=== PATIENT | female | born 1975 | race Caucasian/White ===

== ENCOUNTER 2017-07-19 13:23 | Outpatient (CLI) | payer BC | END 2017-07-19 13:24 | disposition home or self-care (01) | LOC: BICMRI 13:23 | PROVIDERS: ATTEND Family Medicine | DX: S83.242A Other tear of medial meniscus, current injury, left knee, initial encounter (principal); S83.412A Sprain of medial collateral ligament of left knee, initial encounter ==

== ENCOUNTER 2017-07-27 09:58 | Outpatient (CLI) | payer BC ==
[2017-07-27 11:07] LABS: #Eosinphils 0.2 thou/uL (0.0-0.7); #Lymphocytes 1.3 thou/uL (1.20-3.40); #Monocytes 0.6 thou/uL (0.11-0.59); #Neutrophils 5.6 thou/uL (1.40-6.50); %Basophils 0.6 % (0.0-1.0); %Eosinophils 2.8 % (0.0-10.0); %Lymphocytes 16.8 % (21.0-51.0); %Monocytes 7.6 % (0.0-10.0); %Neutrophils 72.2 % (42.0-75.0); Hemoglobin 14.4 g/dL (12.0-16.0); Mean Corpuscular HGB CONC 34.3 g/dL (32.0-36.0); Mean Corpuscular Hemoglobin 30.1 pg (27.0-31.0); Mean Corpuscular Volume 87.8 fl (81.0-99.0); Mean Platelet Volume 5.4 fL (7.4-10.4); Platelet Count 352 thou/uL (130-400); RBC Distribution Width 11.8 % (11.5-14.5); Red Blood Cell (RBC) Count 4.78 mill/uL (4.20-5.40); White Blood Cell (WBC) Count 7.8 thou/uL (4.8-10.8)
[2017-07-27 11:25] LABS: Anion Gap 14 mmol/L (10-20); BUN (Urea Nitrogen) 18 mg/dL (7.0-18.7); Calc. Creatinine Clearance 0 mL/min (70-130); Calcium 9.6 mg/dL (7.8-10.44); Carbon Dioxide 24 mmol/L (22-29); Chloride 104 mmol/L (98-107); Estimated GFR-MDRD 78; Glucose 96 mg/dL (70-105); Potassium 3.9 mmol/L (3.5-5.1); Sodium 138 mmol/L (136-145)
== END 2017-07-27 09:59 | disposition home or self-care (01) ==
LOC: LABBT 09:58
PROVIDERS: ATTEND Orthopaedic Surgery
DX: Z01.818 Encounter for other preprocedural examination (principal); S83.512A Sprain of anterior cruciate ligament of left knee, initial encounter
CPT/HCPCS: 80048; 85025; 93005; 93010

== ENCOUNTER 2017-07-28 06:57 | Inpatient (IN) | payer BC ==
[2017-07-27 10:10] VITALS: BMI 35.9
[2017-07-28] MEDS ORDERED: Midazolam HCl 2 mg/2 ml Vial ONE ×2 (08:05→08:19)
[2017-07-28] MEDS ORDERED: Fentanyl 100 MCG/2 ML VIAL ONE ×3 (08:05→11:22)
[2017-07-28] MEDS ORDERED: methylPREDNISolone Acetate 40 mg/ml Vial ONE (08:31)
[2017-07-28] MEDS ORDERED: Lidocaine 1% (PF) 30 ML VIAL ONE (08:31)
[2017-07-28] MEDS ORDERED: CEFAZOLIN/Water 2 GM/20 ML SYRINGE ONE (08:53)
[2017-07-28] MEDS ORDERED: PHENYLEPHRINE-NS 100 MCG/ML 10 ML SYRINGE ONE ×2 (09:52→13:57)
[2017-07-28] MEDS ORDERED: Acetaminophen 500 MG TAB PO PRN (10:41)
[2017-07-28] MEDS ORDERED: Ondansetron HCl/PF 4 MG/2 ML Vial IVP PRN (10:41)
[2017-07-28] MEDS ORDERED: Methocarbamol 500 MG TAB PO PRN (10:41)
[2017-07-28] MEDS ORDERED: diphenhydrAMINE 50 MG CAP PO PRN (10:41)
[2017-07-28] MEDS ORDERED: traMADol HCl 50 MG TAB PO PRN (10:41)
[2017-07-28] MEDS ORDERED: Morphine 4 MG/ML Carpuject SLOW IVP PRN (10:41)
[2017-07-28] MEDS ORDERED: HYDROcodone/Acetaminophen 7.5/325 mg Tablet PO PRN (10:41)
[2017-07-28] MEDS ORDERED: Milk Of Magnesia 30 ML UDCUP PO PRN (10:41)
[2017-07-28] MEDS ORDERED: Bisacodyl 10 MG SUPP PR PRN (10:41)
[2017-07-28] MEDS ORDERED: Sodium Chloride 0.9% 1,000 ML IV SCH (10:45)
[2017-07-28] MEDS ORDERED: Meperidine HCl/PF 25 MG/ML VIAL ONE (11:15)
--- NOTE | 2017-07-28 11:20 | OP ---
DATE OF PROCEDURE: 07/28/2017 PREOPERATIVE DIAGNOSES: 1. Left knee anterior cruciate ligament tear with posterior horn medial meniscus tear. 2. Right knee osteoarthrosis. POSTOPERATIVE DIAGNOSES: 1. Left knee anterior cruciate ligament tear. 2. Stable tear of the posterior horn going to the root of the lateral meniscus, not the medial menis cus, but the lateral meniscus. 3. The patient had some grade II changes medial femoral condyle. 4. Right knee osteoarthrosis. PROCEDURE 1. Left knee exam under anesthesia. 2. Left knee arthroscopy with arthroscopically assisted ACL reconstruction using allograft Achilles tendon. 3. Right knee corticosteroid injection [employer]OTH BOLT BANDER: Jeff Villegas M.D. CLOTH BOLT BANDER: Dr. Can Cortez BLOOD LOSS: Minimal. ANESTHETIC: The patient did have general anesthetic as well as preoperative blocks. IMPLANTS: To the knee we used a 7 x 25 metal interference screw and we used a 9 mm Delta screw and t he Delta screw was a 9 x 23, it was a [employer] and we also used a bicortical screw with a spiked washer for our backup fixation on the tibia. These were all [employer] devices. INDICATIONS: A 41-year-old female who injured her left knee when she accidentally tripped and injure d her ACL, her MCL and by her MRI her medial meniscus. At this time, she would like to have this rec onstructed and is presenting for surgery. DESCRIPTION OF PROCEDURE: After all appropriate consent forms were explained and signed, she was marina en back to the operating room and at this time was given general anesthetic. Exam under anesthesia c onfirmed a grade II MCL injury with good stability in full extension. Positive Ezekiel was also note d. Tourniquet was then placed in the left thigh. Leg was placed in an arthroscopic leg fernandez. It was then prepped and draped in the standard surgical fashion. The limb was then exsanguinated and to urniquet taken to 300 mmHg. An inferolateral portal was established and the scope was placed into th e knee joint. Needle localization technique was then used to make a medial working portal. Diagnost ic arthroscopy commenced in the notch, the ACL was found to be torn. PCL was intact. At this time, all remaining fibers of ACL removed with the shaver as well as a soft tissue off of the notch. At th is time, we then turned our attention to the diagnostic arthroscopy, the medial compartment was enter ed. 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 The unstable c hondral flaps were gently debrided with the shaver. The tibial plateau was overall in good condition . Upon probing superior and inferior surfaces the medial meniscus was found to be completely intact. We then turned our attention to the lateral compartment. Femur and tibia were in good condition. Lateral meniscal tissue was found to have a tear which was in the white red zone and the very end of the posterior horn going down to the root, it was just a split, there were no flaps. A probe was fredy abbe in this area and it was unable to be pulled out into the joint either through the top or the kermit om and thus, a rasp was used to rasp the edges of this and hopefully since this was a stable lateral meniscus tear that it could heal upon its own postoperatively. At this time, we then looked through our gutters. No loose bodies were noted. There were some small osteophytes noted off the lateral me dial femoral condyle, patellofemoral joint showed the patella to overall be in good condition, but th ere was some significant grade 2 and 3 chondromalacia on the trochlea. Again, loose chondral flaps w ere removed. At this time, we then went about performing our notchplasty using the shaver and the bu r. Once this was done and the Achilles allograft had been performed on the back table, we then flexe d the knee up into the medial portal, placed a pin up and out the anterolateral thigh. A 10 mm reame r was used to ream our tunnel to 30 mm. We then removed all loose bony and cartilaginous debris. We then dilated with a 9.5 and 10 dilator. At this time, we then turned our attention to the tibial si de. Tibial guide was placed into the knee at nearly 60 degrees and a guide pin was placed up through a secondary incision up into the joint. We then removed soft tissue around the guidepin and then re andrea with a 10 mm reamer. At this time, again, 9.5 and 10 mm dilators were used to dilate our tunnel s. We then went ahead and went dry and we flexed the knee up again. We placed a pin up and out the anterolateral thigh with a passing suture which was pulled down through the tibial tunnel and this wa s used to pull the tibial passing suture down through the tibial tunnel. Once this was done, we pull ed our graft up into the knee. Once the femoral side was seated, it was fixated with a 7 x 25 metal interference screw. We then fixated our tibia in two ways. First of all with a 9 x 23 Bio[employer]posite Delta screw. This was done with the knee in 5 degrees of flexion and posterior drawer being applied. Backup fixation was then done by drilling, tapping and placing a bicortical screw with a soft tissu e washer through the more distal portion of the tendon. Once this was tightened, the knee was taken through full range of motion and the graft was found to not have any impingement under direct visuali zation. There was no sign of a composite screw in the joint either. The scope was removed, knee was drained. We then cut off our remaining allograft. We then thoroughly irrigated and we then sewed c losed our tissues by first using a 0 Vicryl, 2-0 Vicryl, and Prolene sutures to close the skin. A bu lky sterile dressing was applied. Tourniquet was let down. Toes pinked up nicely. The patient was awakened and taken to the recovery room in stable condition. All counts were correct at the end of t he case and she did receive preoperative IV antibiotics. Prior to performing in the left knee surgery the right knee was cleaned off with alcohol and 80 mg of Depo-Medrol with local was injected into the right knee without complication. Band-Aid was applied. Once the end of the procedure was performed the patient was awakened and she was taken to the recover y room in stable condition. All counts were correct at the end of the case. She received preoperati ve IV antibiotics.
[2017-07-28] MEDS ORDERED: HYDROmorphone 0.5 MG/0.5 ML SYRINGE ONE (11:22)
[2017-07-28] MEDS ORDERED: Ketorolac Tromethamine 30 MG/ML VIAL ONE (11:33)
[2017-07-28] MEDS ORDERED: Dexamethasone 20 MG/5 ML VIAL ONE (13:57)
[2017-07-28] MEDS ORDERED: PROPOFOL 200 MG/20 ML VIAL ONE (13:57)
[2017-07-28] MEDS ORDERED: Ondansetron HCl/PF 4 MG/2 ML Vial ONE (13:57)
[2017-07-28] MEDS ORDERED: Bupivacaine HCl 0.5%/Epinephrine 1:200,000/PF 30 ml Vial ONE (14:29)
[2017-07-28] MEDS ORDERED: Ropivacaine 0.2% HCl/PF (40 MG/20 ML VIAL) ONE (14:29)
[2017-07-28] MEDS: Ketorolac Tromethamine 30 MG/ML VIAL IVP SCH ×2 (17:50)
[2017-07-28] MEDS: CEFAZOLIN/Water 2 GM/20 ML SYRINGE SLOW IVP SCH (17:51)
[2017-07-28] MEDS ORDERED: Lisinopril/Hydrochlorothiazide 10 mg/12.5 mg Tablet PO SCH (21:00)
[2017-07-28] MEDS ORDERED: Montelukast Sodium 10 mg Tablet PO SCH (21:00)
[2017-07-28] MEDS: HYDROcodone/Acetaminophen 7.5/325 mg Tablet PO PRN (21:11)
[2017-07-28] MEDS: Fluticasone Propionate Nasal Spray 16 gm Bottle NASAL SCH (21:11)
[2017-07-28] MEDS: Famotidine 20 MG TAB PO SCH (21:13)
[2017-07-29] MEDS: CEFAZOLIN/Water 2 GM/20 ML SYRINGE SLOW IVP SCH (00:24)
[2017-07-29] MEDS: Ketorolac Tromethamine 30 MG/ML VIAL IVP SCH ×2 (00:24→06:16)
[2017-07-29] MEDS: HYDROcodone/Acetaminophen 7.5/325 mg Tablet PO PRN ×2 (06:16→10:02)
[2017-07-29] MEDS: Famotidine 20 MG TAB PO SCH (10:01)
[2017-07-29] MEDS: Fluticasone Propionate Nasal Spray 16 gm Bottle NASAL SCH (10:02)
[2017-07-29 12:01] VITALS: BP 105/68; TEMP 98
== END 2017-07-29 12:20 | disposition home or self-care (01) | DRG 489 ==
LOC: SDC 06:57 → SURG A 14:52
PROVIDERS: ADMIT Orthopaedic Surgery; ATTEND Orthopaedic Surgery
PROC: 0MRP4KZ Replacement of Left Knee Bursa and Ligament with Nonautologous Tissue Substitute, Percutaneous Endoscopic Approach (ICD-10-PCS; principal; 2017-07-28)
PROC: 0SBD4ZZ Excision of Left Knee Joint, Percutaneous Endoscopic Approach (ICD-10-PCS; 2017-07-28)
DX: S83.512A Sprain of anterior cruciate ligament of left knee, initial encounter (principal); W01.0XXA Fall on same level from slipping, tripping and stumbling without subsequent striking against object, initial encounter; Y93.9 Activity, unspecified; Y92.9 Unspecified place or not applicable; S83.412A Sprain of medial collateral ligament of left knee, initial encounter; M17.11 Unilateral primary osteoarthritis, right knee; S83.282A Other tear of lateral meniscus, current injury, left knee, initial encounter; M94.262 Chondromalacia, left knee; I10 Essential (primary) hypertension; E55.9 Vitamin D deficiency, unspecified; J45.909 Unspecified asthma, uncomplicated; F98.8 Other specified behavioral and emotional disorders with onset usually occurring in childhood and adolescence; Z90.49 Acquired absence of other specified parts of digestive tract; Z90.710 Acquired absence of both cervix and uterus; Z88.0 Allergy status to penicillin; Z82.49 Family history of ischemic heart disease and other diseases of the circulatory system; Z87.39 Personal history of other diseases of the musculoskeletal system and connective tissue; Z79.899 Other long term (current) drug therapy
CPT/HCPCS: 96374; C1713; G8978-GP-CI; G8979-GP-CI; G8980-GP-CI; J0670; J1030; J1100; J1170; J1885; J2001; J2175; J2250; J2405; J2704; J2795; J3010

== ENCOUNTER 2018-02-06 12:50 | Outpatient (CLI) | payer BC ==
--- NOTE | 2018-02-06 14:01 | ULT ---
SONOGRAM RIGHT BREAST LIMITED: History: Palpable lump. FINDINGS: Sonographic evaluation of the lateral aspect right breast in the region of palpable concern shows sca ttered fibroglandular densities. No solid or cystic masses. IMPRESSION: BIRADS category 2 - benign findings. Please see separate report regarding diagnostic mammography performed on this same date. POS: YOU
== END 2018-02-06 12:51 | disposition home or self-care (01) ==
LOC: BICMAMMO 12:50
PROVIDERS: ATTEND Student in an Organized Health Care Education/Training Program
DX: N63.10 Unspecified lump in the right breast, unspecified quadrant (principal); N64.89 Other specified disorders of breast
CPT/HCPCS: 77066; G0279

== ENCOUNTER 2020-05-15 14:38 | Outpatient (CLI) | payer BC ==
[2020-05-15 15:38] LABS: #Eosinphils 0.3 10x3/uL (0.0-0.5); #Monocytes 0.7 10x3/uL (0.0-1.1); #Neutrophils 5.5 10x3/uL (1.5-8.4); %Basophils 0.5 % (0.0-2.0); %Eosinophils 3.2 % (0.0-6.0); %Lymphocytes 22.4 % (18.0-47.0); %Monocytes 8.6 % (0.0-10.0); %Neutrophils 64.8 % (40.0-75.0); Mean Corpuscular HGB CONC 34.2 g/dL (32.0-36.0); Mean Corpuscular Hemoglobin 29.3 pg (27.0-33.0); Mean Corpuscular Volume 85.6 fl (81.6-98.3); Mean Platelet Volume 8.4 fl (7.4-10.4); Platelet Count 283 10x3/uL (150-450); RBC Distribution Width 12.1 % (11.5-14.5); Red Blood Cell (RBC) Count 4.78 10x6/uL (3.90-5.03); White Blood Cell (WBC) Count 8.5 10x3/uL (3.5-10.5)
[2020-05-15 15:44] LABS: Anion Gap 16 mmol/L (10-20); BUN (Urea Nitrogen) 25 mg/dL (7.0-18.7); Calc. Creatinine Clearance 0 mL/min (70-130); Calcium 9.3 mg/dL (7.8-10.44); Carbon Dioxide 27 mmol/L (22-29); Chloride 101 mmol/L (98-107); Glucose 102 mg/dL (70-105); Potassium 3.7 mmol/L (3.5-5.1); Sodium 140 mmol/L (136-145)
[2020-05-15 15:50] LABS: BHCG - Serum Negative (NEGATIVE); Pregs Control Background? CLEAR/WHITE (CLR/WHITE); Pregs Control Bar Appear? YES (CONTROL BAR)
[2020-05-16 03:55] LABS: SARS-CoV-2 PCR by NAA Not Detected (NotDetected)
== END 2020-05-15 14:39 | disposition home or self-care (01) ==
LOC: LABBT 14:38
PROVIDERS: ATTEND Orthopaedic Surgery
DX: Z01.818 Encounter for other preprocedural examination (principal); S83.206A Unspecified tear of unspecified meniscus, current injury, right knee, initial encounter; Z20.822 Contact with and (suspected) exposure to COVID-19
CPT/HCPCS: 80048; 84703; 85025; 87635; 93005; 93010; U0003; U0005

== ENCOUNTER 2020-05-20 09:18 | Day surgery (SDC) | payer BC ==
[2020-05-19 11:14] VITALS: BMI 39.9
[2020-05-20] MEDS ORDERED: Fentanyl 100 MCG/2 ML VIAL ONE ×4 (10:29→13:48)
[2020-05-20] MEDS ORDERED: Midazolam HCl 2 mg/2 ml Vial ONE (10:29)
[2020-05-20] MEDS ORDERED: Lidocaine 1% w/Epinephrine 1:100K 20 ML VIAL ONE (10:44)
[2020-05-20] MEDS ORDERED: Bupivacaine 0.25% HCL 30 ML VIAL ONE (10:44)
[2020-05-20] MEDS ORDERED: Clindamycin/D5W 600 mg/50 ml Premix Bag ONE (10:53)
[2020-05-20] MEDS ORDERED: Bupivacaine HCl 0.5%/Epinephrine 1:200,000/PF 30 ml Vial ONE (12:12)
[2020-05-20] MEDS ORDERED: Lidocaine 2% w/Epinephrine 1:200K 20 ML VIAL ONE (12:12)
[2020-05-20] MEDS ORDERED: PROPOFOL 200 MG/20 ML VIAL ONE (12:12)
[2020-05-20] MEDS ORDERED: Ondansetron PF 4 MG/2 ML Vial ONE (12:12)
[2020-05-20] MEDS ORDERED: Dexamethasone 20 MG/5 ML VIAL ONE (12:12)
== END 2020-05-20 15:40 | disposition home or self-care (01) ==
LOC: SDC 09:18
PROVIDERS: ATTEND Orthopaedic Surgery
PROC: 0SBC4ZZ Excision of Right Knee Joint, Percutaneous Endoscopic Approach (ICD-10-PCS; principal; 2020-05-20)
DX: S83.241A Other tear of medial meniscus, current injury, right knee, initial encounter (principal); M94.261 Chondromalacia, right knee; M25.761 Osteophyte, right knee; J45.909 Unspecified asthma, uncomplicated; Z79.899 Other long term (current) drug therapy; Z88.0 Allergy status to penicillin; Z91.040 Latex allergy status
CPT/HCPCS: J1100; J2250; J2405; J2704; J3010; J3490; S0020

== ENCOUNTER 2020-11-03 09:37 | Outpatient (CLI) | payer BC ==
[2020-11-03 10:54] LABS: Anion Gap 14 mmol/L (10-20); BUN (Urea Nitrogen) 13 mg/dL (7.0-18.7); Calc. Creatinine Clearance 0 mL/min (70-130); Calcium 9.9 mg/dL (7.8-10.44); Carbon Dioxide 28 mmol/L (22-29); Chloride 102 mmol/L (98-107); Glucose 120 mg/dL (70-105); Sodium 140 mmol/L (136-145)
[2020-11-03 11:30] LABS: SARS-CoV-2 NAA Rapid Test Not Detected (NotDetected)
== END 2020-11-03 09:38 | disposition home or self-care (01) ==
LOC: LABBT 09:37
PROVIDERS: ATTEND Specialist
DX: Z01.818 Encounter for other preprocedural examination (principal); Z20.822 Contact with and (suspected) exposure to COVID-19
CPT/HCPCS: 80048; 85014; 93005; 93010; U0002

== ENCOUNTER 2020-11-04 07:25 | Day surgery (SDC) | payer BC ==
[2020-11-03 16:01] VITALS: BMI 39.9
[2020-11-04] MEDS ORDERED: AFRIN NASAL MIST 15 ML BOT ONE ×3 (07:49→08:37)
[2020-11-04] MEDS ORDERED: Lidocaine 1% w/Epinephrine 1:100K 30 ML VIAL ONE (08:37)
[2020-11-04] MEDS ORDERED: Fentanyl 100 MCG/2 ML VIAL ONE ×2 (08:49→10:11)
[2020-11-04] MEDS ORDERED: PROPOFOL 200 MG/20 ML VIAL ONE (08:57)
[2020-11-04] MEDS ORDERED: Glycopyrrolate 0.2 MG/ML 5 ML SYRINGE ONE (08:57)
[2020-11-04] MEDS ORDERED: Labetalol HCl 100 MG/20 ML VIAL ONE ×2 (08:57→10:04)
[2020-11-04] MEDS ORDERED: Lidocaine 1% PF 5 ML VIAL ONE (08:57)
[2020-11-04] MEDS ORDERED: Rocuronium Bromide 10 MG/ML (10ML VIAL) ONE (08:57)
[2020-11-04] MEDS ORDERED: Dexamethasone 20 MG/5 ML VIAL ONE (08:57)
[2020-11-04] MEDS ORDERED: Esmolol 100 MG/10 ML VIAL ONE (08:57)
[2020-11-04] MEDS ORDERED: Ondansetron PF 4 MG/2 ML Vial ONE (08:57)
[2020-11-04] MEDS ORDERED: hydrALAZINE 20 MG/ML VIAL ONE (10:05)
[2020-11-04] MEDS ORDERED: Morphine 2 MG/ML VIAL ONE (10:57)
[2020-11-04] MEDS ORDERED: Hydrocodone-Acetamin 15 ML UDCUP ONE (11:13)
[2020-11-06 14:15] LABS: Fungus Stain Final report (.)
== END 2020-11-04 11:55 | disposition home or self-care (01) ==
LOC: SDC 07:25
PROVIDERS: ATTEND Otolaryngology Plastic Surgery within the Head & Neck
PROC: 8E09XBZ Computer Assisted Procedure of Head and Neck Region (ICD-10-PCS; principal; 2020-11-04)
PROC: 099Q8ZZ Drainage of Right Maxillary Sinus, Via Natural or Artificial Opening Endoscopic (ICD-10-PCS; principal; 2020-11-04)
PROC: 09BR8ZZ Excision of Left Maxillary Sinus, Via Natural or Artificial Opening Endoscopic (ICD-10-PCS; principal; 2020-11-04)
PROC: 099T8ZZ Drainage of Left Frontal Sinus, Via Natural or Artificial Opening Endoscopic (ICD-10-PCS; principal; 2020-11-04)
PROC: 099S8ZZ Drainage of Right Frontal Sinus, Via Natural or Artificial Opening Endoscopic (ICD-10-PCS; principal; 2020-11-04)
PROC: 09TL8ZZ Resection of Nasal Turbinate, Via Natural or Artificial Opening Endoscopic (ICD-10-PCS; principal; 2020-11-04)
PROC: 09TV8ZZ Resection of Left Ethmoid Sinus, Via Natural or Artificial Opening Endoscopic (ICD-10-PCS; principal; 2020-11-04)
PROC: 09TU8ZZ Resection of Right Ethmoid Sinus, Via Natural or Artificial Opening Endoscopic (ICD-10-PCS; principal; 2020-11-04)
DX: J32.9 Chronic sinusitis, unspecified (principal); J33.8 Other polyp of sinus; J30.89 Other allergic rhinitis; B48.8 Other specified mycoses; J34.3 Hypertrophy of nasal turbinates; J34.89 Other specified disorders of nose and nasal sinuses; I10 Essential (primary) hypertension; J45.909 Unspecified asthma, uncomplicated; L40.50 Arthropathic psoriasis, unspecified; Z79.2 Long term (current) use of antibiotics; Z79.899 Other long term (current) drug therapy; Z88.0 Allergy status to penicillin; Z91.040 Latex allergy status
CPT/HCPCS: 87070; 87102; 87205; 87206; 88304; J0360; J1100; J2270; J2405; J2704; J3010

== ENCOUNTER 2021-03-05 14:19 | Outpatient (CLI) | payer BC | END 2021-03-05 14:20 | disposition home or self-care (01) | LOC: BICMAMMO 14:19 | PROVIDERS: ATTEND Family Medicine | DX: Z12.31 Encounter for screening mammogram for malignant neoplasm of breast (principal); Z20.822 Contact with and (suspected) exposure to COVID-19 | CPT/HCPCS: 77063; 77067 ==

== ENCOUNTER 2021-08-17 09:07 | Day surgery (SDC) | payer BC ==
[2021-08-16 15:23] VITALS: BMI 38.7
[2021-08-17] MEDS ORDERED: Diazepam 5 MG TAB ONE (09:37)
[2021-08-17 09:38] VITALS: BP 132/87; TEMP 97.8
[2021-08-17] MEDS ORDERED: Diazepam 5 MG TAB PO SCH (10:30)
[2021-08-17 12:54] LABS: CSF RBC Count - Manual 12 /cu.mm (None Seen); CSF Source CSF; CSF WBC/NonHematics Count-Man 2 /cu.mm (0-5); Clarity Clear (Clear); Tube # 4
[2021-08-17 12:59] LABS: Color Of CSF Supernatant COLORLESS (Colorless); Unspun CSF Color COLORLESS (Colorless)
[2021-08-17 13:00] LABS: Tube # 1
[2021-08-17 13:19] LABS: CSF, Glucose 60 mg/dl (40-70); CSF, Protein 32 mg/dL (15-40)
[2021-08-18 12:37] LABS: Albumin, Fluid Less than 0.2 g/dL (Not Estab.)
== END 2021-08-17 13:00 | disposition home or self-care (01) ==
LOC: RAD 09:07
PROVIDERS: ATTEND Psychiatry & Neurology Neurology
PROC: 00JU3ZZ Inspection of Spinal Canal, Percutaneous Approach (ICD-10-PCS; principal; 2021-08-17)
DX: R20.2 Paresthesia of skin (principal); Z79.899 Other long term (current) drug therapy; Z88.0 Allergy status to penicillin; Z88.1 Allergy status to other antibiotic agents; Z91.040 Latex allergy status
CPT/HCPCS: 62270; 82042; 82945; 83916; 84157; 89051

== ENCOUNTER 2021-12-16 11:27 | Outpatient (CLI) | payer BC | END 2021-12-16 11:28 | disposition home or self-care (01) | LOC: CTENTCT 11:27 | PROVIDERS: ATTEND Otolaryngology Plastic Surgery within the Head & Neck | DX: J32.9 Chronic sinusitis, unspecified (principal) | CPT/HCPCS: 70486 ==